=== PATIENT | male | born 1970 | race Caucasian/White ===

== ENCOUNTER → 2020-06-11 13:38 | Outpatient (CLI) | payer OTHER, SELFPAY ==
[2020-06-11 15:43] LABS: COVID19 -Nasal RAPID Negative (Negative)
== END ==
PROVIDERS: Visit Provider Student in an Organized Health Care Education/Training Program
DX: Z01.812 Encounter for preprocedural laboratory examination (principal); Z20.822 Contact with and (suspected) exposure to COVID-19
CPT/HCPCS: 87635